=== PATIENT | male | born 1945 | race Caucasian/White ===

== ENCOUNTER 2017-04-02 08:00 | Day surgery (SDC) | payer OTHER ==
[~2017-04-02] VITALS: Ht 170.2 cm; Wt 61.2 kg
[2017-04-02] MEDS ORDERED: MIDAZOLAM HCL 5 MG/5 ML VIAL IVP ONE (10:35)
[2017-04-02] MEDS ORDERED: ONDANSETRON HCL 4 MG/2 ML VIAL IVP ONE (10:35)
[2017-04-02] MEDS ORDERED: LR 1,000 ML IV.SOLN IV ONE (10:35)
[2017-04-02] MEDS ORDERED: PROPOFOL 200MG/ 20ML VIAL (DIPRIVAN) IV ONE (10:35)
[2017-04-02] MEDS ORDERED: LR 1,000 ML IV SCH (11:26)
[2017-04-02] MEDS ORDERED: MEPERIDINE HCL/PF 50 MG/ML AMP IVP PRN ×2 (11:30)
[2017-04-02] MEDS ORDERED: MEPERIDINE HCL/PF 25 MG/ML DISP.SYRIN IVP PRN (11:30)
[2017-04-02] MEDS ORDERED: METOCLOPRAMIDE HCL 10 MG/2 ML VIAL IVP PRN (11:30)
[2017-04-02 12:52] VITALS: BP_SYST 131
== END 2017-04-02 13:40 | disposition home or self-care (01) ==
LOC: SMU 08:00 → SDS 08:00
PROVIDERS: ATTEND Surgery
DX: D12.3 Benign neoplasm of transverse colon (principal); R19.4 Change in bowel habit; J44.9 Chronic obstructive pulmonary disease, unspecified; D12.4 Benign neoplasm of descending colon; D12.5 Benign neoplasm of sigmoid colon; D12.7 Benign neoplasm of rectosigmoid junction; Q43.8 Other specified congenital malformations of intestine; K62.9 Disease of anus and rectum, unspecified; K57.30 Diverticulosis of large intestine without perforation or abscess without bleeding; K64.8 Other hemorrhoids; K21.9 Gastro-esophageal reflux disease without esophagitis; Z87.891 Personal history of nicotine dependence
CPT/HCPCS: 36415; 45380; 45385; 82378; 88305; J2250; J2405; J2704; J7120; 88307